=== PATIENT | female | born 1985 | race African-American/Black ===

== ENCOUNTER 2017-10-05 10:02 | Emergency (ER) | payer BC | END 2017-10-05 12:44 | disposition home or self-care (01) | LOC: ER 10:02 | DX: S93.601A Unspecified sprain of right foot, initial encounter (principal); X58.XXXA Exposure to other specified factors, initial encounter; Y93.01 Activity, walking, marching and hiking; Y92.481 Parking lot as the place of occurrence of the external cause; Y99.8 Other external cause status | CPT/HCPCS: 73630; 99284 ==